=== PATIENT | male | born 1970 | race African-American/Black ===

== ENCOUNTER 2021-05-13 10:01 | Outpatient (CLI) | payer SELFPAY | END 2021-05-13 10:02 | disposition home or self-care (01) | LOC: CSHWCC 10:01 | PROVIDERS: ATTEND Nurse Practitioner Family | DX: S81.802A Unspecified open wound, left lower leg, initial encounter (principal); G89.11 Acute pain due to trauma; M72.6 Necrotizing fasciitis | CPT/HCPCS: 97607 ==

== ENCOUNTER 2021-05-21 08:54 | Outpatient (CLI) | payer SELFPAY | END 2021-05-21 08:55 | disposition home or self-care (01) | LOC: CSHWCC 08:54 | PROVIDERS: ATTEND Nurse Practitioner Family | DX: S81.802D Unspecified open wound, left lower leg, subsequent encounter (principal); S71.102D Unspecified open wound, left thigh, subsequent encounter; S21.202D Unspecified open wound of left back wall of thorax without penetration into thoracic cavity, subsequent encounter; G89.11 Acute pain due to trauma; M72.6 Necrotizing fasciitis | CPT/HCPCS: 97605 ==

== ENCOUNTER 2021-05-28 09:25 | Outpatient (CLI) | payer SELFPAY | END 2021-05-28 09:26 | disposition home or self-care (01) | LOC: CSHWCC 09:25 | PROVIDERS: ATTEND Nurse Practitioner Family | DX: S81.802D Unspecified open wound, left lower leg, subsequent encounter (principal); M72.6 Necrotizing fasciitis; G89.11 Acute pain due to trauma ==

== ENCOUNTER 2021-06-05 09:56 | Outpatient (CLI) | payer SELFPAY | END 2021-06-05 09:57 | disposition home or self-care (01) | LOC: CSHWCC 09:56 | PROVIDERS: ATTEND Nurse Practitioner Family | DX: S81.802D Unspecified open wound, left lower leg, subsequent encounter (principal); M72.6 Necrotizing fasciitis; G89.11 Acute pain due to trauma | CPT/HCPCS: 99212; G0463 ==

== ENCOUNTER 2021-06-12 08:32 | Outpatient (CLI) | payer SELFPAY | END 2021-06-12 08:33 | disposition home or self-care (01) | LOC: CSHWCC 08:32 | PROVIDERS: ATTEND Nurse Practitioner Family | DX: S81.802D Unspecified open wound, left lower leg, subsequent encounter (principal); M72.6 Necrotizing fasciitis; G89.11 Acute pain due to trauma | CPT/HCPCS: 99212; G0463 ==

== ENCOUNTER 2021-06-25 08:57 | Outpatient (CLI) | payer SELFPAY | END 2021-06-25 08:58 | disposition home or self-care (01) | LOC: CSHWCC 08:57 | PROVIDERS: ATTEND Nurse Practitioner Family | DX: S81.802D Unspecified open wound, left lower leg, subsequent encounter (principal); G89.11 Acute pain due to trauma; M72.6 Necrotizing fasciitis | CPT/HCPCS: 11042; 99212; G0463 ==

== ENCOUNTER 2021-07-02 10:15 | Outpatient (CLI) | payer SELFPAY | END 2021-07-02 10:16 | disposition home or self-care (01) | LOC: CSHWCC 10:15 | PROVIDERS: ATTEND Nurse Practitioner Family | DX: S81.802D Unspecified open wound, left lower leg, subsequent encounter (principal); M72.6 Necrotizing fasciitis; G89.11 Acute pain due to trauma | CPT/HCPCS: 11042 ==

== ENCOUNTER 2021-07-09 10:54 | Outpatient (CLI) | payer SELFPAY | END 2021-07-09 10:55 | disposition home or self-care (01) | LOC: CSHWCC 10:54 | PROVIDERS: ATTEND Nurse Practitioner Family | DX: S81.802D Unspecified open wound, left lower leg, subsequent encounter (principal); M72.6 Necrotizing fasciitis; G89.11 Acute pain due to trauma ==

== ENCOUNTER 2021-07-23 10:35 | Outpatient (CLI) | payer SELFPAY | END 2021-07-23 10:36 | disposition home or self-care (01) | LOC: CSHWCC 10:35 | PROVIDERS: ATTEND Nurse Practitioner Family | DX: S81.802D Unspecified open wound, left lower leg, subsequent encounter (principal); M72.6 Necrotizing fasciitis; G89.11 Acute pain due to trauma | CPT/HCPCS: 11042 ==

== ENCOUNTER 2021-08-11 12:41 | Outpatient (CLI) | payer SELFPAY | END 2021-08-11 12:42 | disposition home or self-care (01) | LOC: CSHWCC 12:41 | PROVIDERS: ATTEND Nurse Practitioner Family | DX: S81.802A Unspecified open wound, left lower leg, initial encounter (principal); G89.11 Acute pain due to trauma; M72.6 Necrotizing fasciitis | CPT/HCPCS: 11042 ==